=== PATIENT | male | born 1955 | race Two or more races ===

== ENCOUNTER 2018-06-12 06:29 | Day surgery (SDC) | payer OTHER ==
[~2018-06-12 06:29] MED LIST: SOD CHLORIDE 0.9% 1,000 ML IV
[2018-06-12] MEDS ORDERED: NITROGLYCERIN (IC) 100 MCG/ML INJ (07:20)
[2018-06-12] MEDS ORDERED: SOD CHLORIDE 0.9% 500 ML (07:20)
[2018-06-12] MEDS ORDERED: LIDOCAINE 1% (MDV) 20 ML INJ (07:20)
[2018-06-12] MEDS ORDERED: HEPARIN 1000 UNITS/ML 10 ML INJ (07:20)
[2018-06-12] MEDS ORDERED: FENTAnyl 50 MCG/ML VIAL (07:20)
[2018-06-12] MEDS ORDERED: MIDAZOLAM 1 MG/ML 2 ML INJ (07:20)
[2018-06-12] MEDS ORDERED: IODIXANOL LOCM 100 ML BTL (07:20)
[2018-06-12] MEDS ORDERED: VERAPAMIL 5 MG INJ (07:21)
[2018-06-12 07:34] LABS: ADD MAN DIFF? NO
[2018-06-12 07:39] LABS: WHITE BLOOD COUNT 7.4 10^3/ul (4.8-10.8)
[2018-06-12 07:39] LABS: BASOPHILS % 0.5 % (0.0-2.0); EOSINOPHILS # 0.2 10^3/ul (0.0-0.5); EOSINOPHILS % 2.7 % (0.0-7.0); HEMATOCRIT 41.9 % (42.0-52.0); HEMOGLOBIN 14.1 g/dl (14.0-18.0); LYMPHOCYTES # 1.9 10^3/ul (0.8-2.9); LYMPHOCYTES % 25.7 % (15.0-51.0); MEAN CORPUSCULAR HEMOGLOBIN 29.8 pg (29.0-33.0); MEAN CORPUSCULAR HGB CONC 33.7 g/dl (32.0-37.0); MEAN CORPUSCULAR VOLUME 88.6 fl (82.0-101.0); MEAN PLATELET VOLUME 10.6 fl (7.4-10.4); MONOCYTE # 0.6 10^3/ul (0.3-0.9); MONOCYTES % 8.4 % (0.0-11.0); NEUTROPHIL # 4.6 10^3/ul (1.6-7.5); NEUTROPHILS % 62.4 % (39.0-77.0); PLATELET COUNT 296 10^3/UL (140-415); RED BLOOD COUNT 4.73 10^6/ul (4.70-6.10)
[2018-06-12 07:57] LABS: INR 1.06; PROTIME 13.9 Sec (11.9-14.9); PT RATIO 1.1
[2018-06-12 08:06] LABS: ANION GAP 11 (8-16); BLOOD UREA NITROGEN 17 mg/dl (7-20); CARBON DIOXIDE 24 mmol/L (21-31); CHLORIDE 111 mmol/L (97-110); CREATININE 0.84 mg/dl (0.61-1.24); GLUCOSE 104 mg/dl (70-220); POTASSIUM 3.9 mmol/L (3.5-5.1); SODIUM 142 mmol/L (135-144)
[2018-06-12] MEDS ORDERED: SOD CHLORIDE 0.9% 1,000 ML IV (08:51)
== END 2018-06-12 15:00 | disposition home or self-care (01) ==
LOC: SDS 06:29
DX: I25.10 Atherosclerotic heart disease of native coronary artery without angina pectoris (principal); I10 Essential (primary) hypertension; R94.39 Abnormal result of other cardiovascular function study
CPT/HCPCS: 80048; 85025; 85610; 93005; 93454